=== PATIENT | female | born 1955 | race African-American/Black ===

== ENCOUNTER → 2017-06-22 | Outpatient (CLI) | payer BC ==
--- NOTE | ~2017-06-22 | MY25 ---
[facility] A Service of [facility] RADIOLOGY TEXT RESULTS PATIENT: KONRAD MEHTA LOCATION: [facility] : 55 UNIT #: [id number] AGE: [address]: Karen Diaz MD SEX: F ORDER DR: [id number] [facility] [address] [place], [place] [address] [id number] O MR#: [id number] Acc #: [id number] NAME: KONRAD EMHTA : 1955 SEX: F STUDY DATE/TIME: 06/22/2017 9:04 UNIT: [facility] ROOM: STUDY DESCRIPTION: DAMIEN HOLM W/ CAD UNI RT Attending Physician: Karen Diaz M.D. Ordering Physician: Karen Diaz M.D. Primary Care Physician: Gerardo Andrews M.D. MEDICAL IMAGING REPORT This report is preliminary unless electronic signature is present EXAM Unilateral right digital diagnostic mammogram with CAD, 06/22/2017 INDICATION 61-year-old female with history of left-sided breast cancer status post mastectomy. Breast cancer diagnosis was in 2012. Needle biopsy on the right in 2014 with negative results. No current problems. Family history positive in the patient's mother. TECHNIQUE CC, MLO and true lateral views of the right breast were obtained and reviewed with an FDA-approved CAD device. COMPARISON 06/23/2016, 02/25/2016, 07/17/2015 and prior studies dating back April 2012. FINDINGS Breast parenchyma is predominately fatty replaced. Biopsy clip in the medial lower hemisphere right breast unchanged. There is no new dominant nodule, mass or suspicious cluster of microcalcifications. Stable benign intramammary node in the posterior upper outer right breast. Absent new or worsening symptoms in either breast, a mammogram in 1 year is recommended. Findings and recommendations were discussed with the patient. She voiced understanding and agreement. IMPRESSION Benign diagnostic mammogram. 1-year followup recommended. Patients over the age of 40 are entered into a reminder system with target due date for the next mammogram. A result letter will also be sent to the patient. STS. [facility] A Service of [facility] RADIOLOGY TEXT RESULTS PATIENT: KONRAD MEHTA LOCATION: [facility] : 55 UNIT #: [id number] AGE: [address]: Karen Diaz MD SEX: F ORDER DR: PRUDENCEADS: 2 Benign Finding Dictated by... Medhat Magana M.D. THIS IS AN ELECTRONICALLY VERIFIED REPORT Medhat Magana M.D. at 06/23/2017 7:37 AM Danielle TD: 06/22/2017 17:03 JOB #: [id number] MEDICAL IMAGING REPORT Page 1 of 1 COPY
== END | disposition home or self-care (01) ==
LOC: CMAM 08:48
DX: Z08 Encounter for follow-up examination after completed treatment for malignant neoplasm (principal); Z85.3 Personal history of malignant neoplasm of breast; Z90.11 Acquired absence of right breast and nipple; Z80.3 Family history of malignant neoplasm of breast
CPT/HCPCS: G0206